=== PATIENT | male | born 1950 | race Two or more races ===

== ENCOUNTER 2023-08-09 05:20 | Day surgery (SDC) | payer OTHER ==
[2023-08-06 10:44] LABS: HEMATOCRIT 46.8 % (39.0-48.0); HEMOGLOBIN 15.6 g/dL (13-16.00); MEAN CORPUSCULAR HEMOGLOBIN 32.6 pg (27.00-32.0); MEAN CORPUSCULAR HGB CONC 33.3 g/dl (32.0-36.0); PLATELET COUNT 226 K/uL (150-450); RED BLOOD COUNT 4.77 M/uL (4.00-6.00); RED CELL DISTRIBUTION WIDTH 13.1 % (11.5-14.5)
[2023-08-06 10:46] LABS: PH,URINE 7.5 (5.0-8.0); URINE APPEARANCE Clear; URINE BILIRRUBIN Negative (NEGATIVE); URINE BLOOD Small; URINE COLOR Yellow; URINE GLUCOSE Negative (NEGATIVE); URINE LEUKOCYTE Negative; URINE NITRATE Negative; URINE PROTEIN Negative (NEGATIVE); URINE UROBILINOGEN 0.2 E.U./dl
[2023-08-06 10:51] LABS: URINE RBC 64.9 uL (0.0-20.8); URINE WBC 2.4 uL (0.0-23.2)
[2023-08-06 11:06] LABS: URINE EPITHELIAL CELLS 0.9 uL (0.0-38.8)
[2023-08-06 11:17] LABS: PARTIAL THROMBOPLASTIN TIME 26.4 SECONDS (22.0-34.0); PROTHROMBIN TIME 10.5 SECONDS (9.0-11.5)
[2023-08-06 11:20] LABS: ALBUMIN 4.1 gm/dL (3.4-5.0); BILIRUBIN TOTAL 0.71 mg/dL (0.3-1.2); CALCIUM 9.5 mg/dL (8.5-10.1); CREATININE SERUM 1.01 mg/dL (0.70-1.30); GFR 72.61; GLOBULINA 3.1 G/DL (2.4-3.5); POTASSIUM 4.36 mEq/L (3.5-5.1); TOTAL PROTEIN 7.2 gm/dL (6.4-8.2)
[~2023-08-09] VITALS: Ht 175.3 cm; Wt 69.9 kg
[~2023-08-09 05:20] MED LIST: CLONAZEPAM0.25 MG PO; CRESTOR10 MG PO; ESCITALOPRAM OX20 MG PO
[2023-08-09] MEDS ORDERED: MIRALAX17 GM PO (09:46)
[2023-08-09] MEDS ORDERED: TYLENOL ARTHRI650 MG PO (09:46)
[2023-08-09] MEDS ORDERED: TRAMADOL HCL50 MG PO (09:46)
== END 2023-08-09 13:15 | disposition home or self-care (01) ==
LOC: CIR.AMB 05:20
PROVIDERS: ATTEND Surgery
DX: K40.20 Bilateral inguinal hernia, without obstruction or gangrene, not specified as recurrent (principal); K42.9 Umbilical hernia without obstruction or gangrene; I10 Essential (primary) hypertension; Z20.822 Contact with and (suspected) exposure to COVID-19; Z88.6 Allergy status to analgesic agent
CPT/HCPCS: 49650; 49591; C1781